=== PATIENT | female | born 1960 | race African-American/Black ===

== ENCOUNTER 2019-03-13 13:21 | Outpatient (CLI) | payer OTHER ==
--- NOTE | 2019-03-13 14:08 | RAD ---
CHEST TWO VIEWS: History: Dyspnea. Comparison: 03-08-17 FINDINGS: Heart size is normal. The lungs are clear. No pneumonia, edema, pleural effusion, or other acute proc ess. IMPRESSION: No acute intrathoracic disease. POS: [facility]
== END 2019-03-13 13:22 | disposition home or self-care (01) ==
LOC: RAD 13:21
PROVIDERS: ATTEND Internal Medicine Pulmonary Disease
DX: R06.00 Dyspnea, unspecified (principal)
CPT/HCPCS: 71046

== ENCOUNTER 2021-03-10 15:36 | Outpatient (CLI) | payer OTHER | END 2021-03-10 15:37 | disposition home or self-care (01) | LOC: BICMAMMO 15:36 | PROVIDERS: ATTEND Family Medicine | DX: Z12.31 Encounter for screening mammogram for malignant neoplasm of breast (principal); Z13.820 Encounter for screening for osteoporosis; Z78.0 Asymptomatic menopausal state; Z84.81 Family history of carrier of genetic disease | CPT/HCPCS: 77063; 77067; 77080 ==

== ENCOUNTER 2025-06-19 14:31 | Outpatient (CLI) | payer OTHER | END 2025-06-19 14:32 | disposition home or self-care (01) | LOC: CT 14:31 | PROVIDERS: ATTEND Otolaryngology Plastic Surgery within the Head & Neck | DX: J33.9 Nasal polyp, unspecified (principal); J32.0 Chronic maxillary sinusitis; J32.1 Chronic frontal sinusitis; J32.2 Chronic ethmoidal sinusitis; J32.3 Chronic sphenoidal sinusitis; J34.89 Other specified disorders of nose and nasal sinuses ==